=== PATIENT | male | born 1995 | race Caucasian/White ===

== ENCOUNTER 2016-12-11 15:41 | Emergency (ER) | payer BC ==
[~2016-12-11] VITALS: Ht 177.8 cm; Wt 86.2 kg
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
--- NOTE | 2016-12-11 17:22 | NUR ---
Patient discharged to home in stable condition. Written and verbal after care instructions given. Patient verbalizes understanding of instruction. AMBULATORY WITH STEADY GAIT.
[2016-12-11 17:24] VITALS: BP 154/78
== END 2016-12-11 17:25 | disposition home or self-care (01) ==
LOC: ER 15:43
DX: R51 Headache (principal); Z88.0 Allergy status to penicillin
CPT/HCPCS: 70450; 72125; 99284; A4606; Z7610

== ENCOUNTER 2019-04-08 01:05 | Emergency (ER) | payer BC, OTHER ==
[~2019-04-08] VITALS: Ht 177.8 cm; Wt 83.9 kg
[2019-04-08 01:19] VITALS: BP 163/97
== END 2019-04-08 02:02 | disposition home or self-care (01) ==
LOC: ER 01:09
DX: T78.40XA Allergy, unspecified, initial encounter (principal); I10 Essential (primary) hypertension; K58.9 Irritable bowel syndrome, unspecified; Z88.0 Allergy status to penicillin; X58.XXXA Exposure to other specified factors, initial encounter
CPT/HCPCS: 71045-TC